=== PATIENT | female | born 1955 | race Caucasian/White ===

== ENCOUNTER → 2023-08-19 | Outpatient (CLI) | payer MEDICARE ==
--- NOTE | 2023-08-22 08:38 | MM ---
Reason for Exam: Screening (asymptomatic). Last mammogram was performed 1 year(s) and 4 month(s) ago. Patient History: Menarche at age 14. Patient has no children. Postmenopausal. 2013, Stereotactic Core Biopsy on the Right side. Risk Values: Sandra 5 year model risk: 2.2%. NCI Lifetime model risk: 8.2%. Tissue Density: The breasts are heterogeneously dense, which may obscure small masses. Findings: Analyzed By CAD. There is no suspicious group of microcalcifications or new suspicious mass in either breast. Previous biopsy marker within the right breast. Benign-appearing calcifications. Overall Assessment: Benign, BI-RAD 2 Management: Screening Mammogram of both breasts in 1 year. . Patient should continue monthly self-breast exams. A clinical breast exam by your physician is recommended on an annual basis. This exam should not preclude additional follow-up of suspicious palpable abnormalities. Note on Sandra scores and lifetime risk: 1. A Sandra score greater than 3% is considered moderate risk. If this is the case, consider specialist referral to assess eligibility for a risk reducing agent. 2. If overall lifetime risk for the development of breast cancer is 20% or higher, the patient may qualify for future screening with alternating mammogram and breast MRI. Electronically signed and approved by: Otoniel Horn M.D. Radiologis
== END | disposition home or self-care (01) ==
LOC: RADMAMWWP 07:54
PROVIDERS: ATTEND Family Medicine
DX: Z12.31 Encounter for screening mammogram for malignant neoplasm of breast (principal); Z78.0 Asymptomatic menopausal state
CPT/HCPCS: 77063; 77067

== ENCOUNTER 2023-08-30 08:47 | Day surgery (SDC) | payer MEDICARE ==
[2023-08-30] MEDS: LACTATED RINGERS 1,000 ML IV SCH (09:27)
[2023-08-30] MEDS ORDERED: LIDOCAINE 1% INJ 10MG/ML (20 ML MDV) ONE (09:44)
[2023-08-30] MEDS ORDERED: PROPOFOL 10 MG/ML 20 ML VIAL IV ONE (09:44)
--- NOTE | 2023-08-30 09:59 | P.PCN ---
Date of Procedure: 08/30/23 Procedure(s) Performed: BRIEF HISTORY: Patient is a 68year-old pleasant White female scheduled for an elective colonoscopy as a part of Screening for colon cancer and family history of colon cancer. Her father was diagnosed with colon cancer at age 49. PROCEDURE PERFORMED: Colonoscopy. PREOPERATIVE DIAGNOSIS: Screening for colon cancer and family history of colon cancer IV sedation per Anesthesia. PROCEDURE: After informed consent was obtained, the patient, was brought into the endoscopy unit. IV sedation was administered by Anesthesia under continuous monitoring. Digital rectal examination was normal. Initially the Olympus CF-160 flexible video colonoscope was then inserted in the rectum, gradually advanced into the cecum without any difficulty. Careful examination was performed as the scope was gradually being withdrawn. Ileocecal valve and the appendiceal orifice were visualized and appeared normal. Prep was excellent. Mucosa of the cecum, ascending colon, transverse colon, descending colon, sigmoid colon, and rectum appeared normal. Retroflexion was performed in the rectum and no lesions were seen. The patient tolerated the procedure well. IMPRESSION: Normal-appearing colon from rectum to cecum With no evidence of colitis or colorectal neoplasia. RECOMMENDATIONS: Findings of this examination were discussed with the patient As well as a family. She was advised to have a repeat screening colonoscopy in 5 years because of the family history of colon cancer
[2023-08-30 10:03] VITALS: TEMP 97.2
[2023-08-30 10:47] VITALS: BP 131/74; PULSE 58
[2023-08-30 10:48] VITALS: RESP 18
== END 2023-08-30 10:39 | disposition home or self-care (01) ==
LOC: ORWHC2ENDO 08:47
PROVIDERS: ATTEND Internal Medicine Gastroenterology
DX: Z12.11 Encounter for screening for malignant neoplasm of colon (principal); I10 Essential (primary) hypertension; E78.5 Hyperlipidemia, unspecified; I47.10 Supraventricular tachycardia, unspecified; Z80.0 Family history of malignant neoplasm of digestive organs; Z79.82 Long term (current) use of aspirin; Z79.899 Other long term (current) drug therapy
CPT/HCPCS: J2001; J2704; G0105

== ENCOUNTER → 2023-09-02 | Outpatient (CLI) | payer MEDICARE ==
[2023-09-02 08:26] LABS: African American GFR (CKD) 86 (>60 ml/min/1.73 sqM); Blood Urea Nitrogen 18 mg/dL (7-17); Non-African American GFR(CKD) 75 (>60 ml/min/1.73 sqM)
--- NOTE | 2023-09-02 10:59 | CT ---
EXAMINATION TYPE: CT chest w con DATE OF EXAM: 09/02/2023 COMPARISON: 08/21/2022 HISTORY: pulmonary nodules CT DLP: 127.3 mGycm Automated exposure control for dose reduction was used. TECHNIQUE: CT scan of the chest is performed with IV Contrast, patient injected with 100 mL of Isovue 300. MIP Images are created on CT scanner and reviewed. 3D reconstructed images are created on an independent workstation and reviewed. FINDINGS: LUNGS: The lungs are grossly clear, there is no concerning parenchymal mass or nodule identified. Mul tiple bilateral 6 mm left pulmonary nodules are stable. Reference left lower lobe image 47 series 4 a nd right lower lobe image 47 series 4. Additional nodules are stable. There is no pleural effusion or pneumothorax seen. The tracheobronchial tree is patent. MEDIASTINUM: No pathologic sized lymph nodes measured in short axis. Ascending aorta measures 3.8 cm in short axis compatible with mild ectasia. 3. Minimal coronary artery calcification. There is mild cardiomegaly. OTHER: Multilevel hypertrophic and degenerative changes spine. Small hiatal hernia. IMPRESSION: 1. Multiple bilateral pulmonary nodules are stable. There are too small to characterize but most like ly benign. Recommend continued annual screening with twelve-month low dose screening CT according to Fleischner Society guidelines. Follow-up recommendations for incidental pulmonary nodules are per Fleischner?s [employer] or [employer].
== END | disposition home or self-care (01) ==
LOC: RADCTMAIN 07:21
PROVIDERS: ATTEND Family Medicine
DX: R91.8 Other nonspecific abnormal finding of lung field (principal)
CPT/HCPCS: 82565; 84520; 71260; 36415; Q9967

== ENCOUNTER → 2024-08-06 | Outpatient (CLI) | payer MEDICARE ==
[2024-08-06 10:27] LABS: ALT 39 U/L (8-44); AST 35 U/L (13-35); Chol/HDL Ratio 1.75 Ratio; LDL Cholesterol,Calculated 61.5 mg/dL (0.0-131.0); VLDL Calculation 9.02 mg/dL (5.00-40.00)
== END | disposition home or self-care (01) ==
LOC: LABWHC1 07:46
PROVIDERS: ATTEND Internal Medicine Interventional Cardiology
DX: E78.2 Mixed hyperlipidemia (principal)
CPT/HCPCS: 36415; 80061; 84450; 84460

== ENCOUNTER → 2024-09-04 | Outpatient (CLI) | payer MEDICARE ==
--- NOTE | 2024-09-04 11:29 | MM ---
Reason for Exam: Screening (asymptomatic). Last mammogram was performed 1 year(s) and 1 month(s) ago. Patient History: Menarche at age 14. Patient has no children. Postmenopausal. 2013, Stereotactic Core Biopsy on the Right side. Risk Values: Sandra 5 year model risk: 2.2%. NCI Lifetime model risk: 7.6%. Prior Study Comparison: 04/25/2022 Bilateral Screening Mammogram, [facility]. 08/19/2023 Bilateral MG 3D screening mammo w/cad, [facility]. Tissue Density: The breasts are heterogeneously dense, which may obscure small masses. Findings: Analyzed By CAD. Microclip right breast from prior biopsy. Asymmetric density associated with a microclip is unchanged. There is no suspicious group of microcalcifications or new suspicious mass in either breast. Overall Assessment: Benign, BI-RAD 2 Management: Screening Mammogram of both breasts in 1 year. Patient should continue monthly self-breast exams. A clinical breast exam by your physician is recommended on an annual basis. This exam should not preclude additional follow-up of suspicious palpable abnormalities. Note on Sandra scores and lifetime risk: 1. A Sandra score greater than 3% is considered moderate risk. If this is the case, consider specialist referral to assess eligibility for a risk reducing agent. 2. If overall lifetime risk for the development of breast cancer is 20% or higher, the patient may qualify for future screening with alternating mammogram and breast MRI. [facility], , 09/04/2024 11:26 AM. Electronically signed and approved by: Baljinder Calvillo M.D. Radiologist
== END | disposition home or self-care (01) ==
LOC: RADMAMWWP 08:51
PROVIDERS: ATTEND Obstetrics & Gynecology
DX: Z12.31 Encounter for screening mammogram for malignant neoplasm of breast (principal); R92.333 Mammographic heterogeneous density, bilateral breasts; Z78.0 Asymptomatic menopausal state
CPT/HCPCS: 77063; 77067